=== PATIENT | female | born 1990 | race Caucasian/White ===

== ENCOUNTER 2017-01-14 19:40 | Emergency (ER) | payer BC ==
[2017-01-14 19:47] VITALS: BP 133/83
[2017-01-14] MEDS ORDERED: Ketorolac 60 MG/2 ML SDV IM ONE (20:32)
--- NOTE | 2017-01-14 20:34 | EDM.PDOC ---
ED HPI GENERAL MEDICAL PROBLEM - General Chief Complaint: General Stated Complaint: left neck pain Time Seen by Provider: 01/14/17 20:25 Source of Information: Reports: Patient History Limitations: Reports: No Limitations - History of Present Illness INITIAL COMMENTS - FREE TEXT/NARRATIVE: History and physical: History of present illness: [Patient comes the emergency room from [place] where she lives. She complains of left-sided neck pain. This is been a chronic problem for her for the past several years she states that Dr. Vickers has injected her neck several times in the past. Most recent was approximately 2 years ago per her report. She also states that the neck pain began 2 weeks ago and intensified last evening. She has had some numbness and tingling into her left arm over the past 24 hours which has remained the same. States that she's been using Tylenol and ibuprofen with minimal improvement in her symptoms. She denies any other complaints and concerns at this time. No chest pain shortness of breath and difficulty breathing. No pain numbness or tingling in her right neck or down her right arm. Denies low back hip and leg pain. She has not had any weakness. She denies recent injury and trauma. No recent car accidents. Review of her past visits in EMR show previous visits for lumbar sacral pain but no specific encounters for neck pain noted.] Review of Systems: As per history of present illness and below otherwise all systems reviewed and negative. Past medical history: As per history of present illness and as reviewed below otherwise noncontributory. Surgical history: As per history of present illness and is reviewed below other freeman noncontributory. Social history: No reported history of drug or alcohol abuse. Family history: As per history of present illness and is reviewed below otherwise noncontributory. Physical exam: HEENT: Atraumatic, normocephalic. Patient is not using her neck much on initial observation. C-spine flexion and rotation is full and intact. Lateral flexion to right and left sides are diminished due to discomfort. No worsening numbness or tingling with range of motion exercises. She is tender with palpation over left neck musculature. Nontender over cervical vertebrae. No step-offs or abnormalities are appreciated. Extremities: atraumatic in appearance. Strength is 5 out of 5 to upper and lower extremities and equal bilaterally. Hand illuminating engineer strength is strong and equal bilaterally. No weakness noted. Neurovascular unremarkable. Neuro: Awake, alert, oriented. Motor and sensory unremarkable throughout. Exam nonfocal. Therapeutics: [Toradol 60 mg IM] Impression: [Left-sided neck pain] Plan: [Discussed with patient that due to the chronic nature of her neck pain for the past 2 years she needs to follow-up with her primary care provider. We discussed that an MRI may be indicated and that this is not able to be done on emergent basis at this facility. She verbalized understanding of the above. She is given Toradol 60 mg IM in the emergency room. Tylenol and ibuprofen as needed for discomfort alternate heating pads and ice packs as needed. All of her questions are answered and concerns are addressed.] Definitive disposition and diagnosis is appropriate pending reevaluation and review of above. Left Neck Pain Score (Numeric/FACES): 7 - Related Data Allergies Allergy/AdvReac Type Severity Reaction Status Date / Time Penicillins Allergy Rash Verified 01/14/17 19:43 Home Meds: Home Meds . 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 ED EXAM, GENERAL - Physical Exam Exam: See Below Course - Vital Signs Last Recorded V/S: Last Vital Signs Temp 97 F 01/14/17 19:43 Pulse 92 01/14/17 19:43 Resp 20 01/14/17 19:43 BP 133/83 01/14/17 19:43 Pulse Ox 99 01/14/17 19:43 - Orders/Labs/Meds Meds: Medications Discontinued Medications Generic Name Dose Route Start Last Admin Trade Name Freq PRN Reason Stop Dose Admin Ketorolac Tromethamine 60 mg 01/14/17 20:32 01/14/17 20:51 Toradol IM 01/14/17 20:33 60 mg ONETIME ONE Administration Departure - Departure Time of Disposition: 20:45 Disposition: Home, Self-Care 01 Condition: Good Clinical Impression: Neck pain - Discharge Information Referrals: Sabas Vickers MD [Primary Care Provider] - Forms: ED Department Discharge Additional Instructions: The following information is given to patients seen in the emergency department who are being discharged home. This information is to outline your options for follow-up care and provides all patient seen in our emergency department with a follow-up referral. The need for follow-up, as well as the timing and circumstances, are variable depending upon the specifics of each emergency department visit. If you don't have a primary care physician on staff, we will provide you with a referral. We always advise to contact your personal physician following an emergency department visit to inform them of the circumstances of the visit and for follow-up with them and/or the need for any referrals to a consulting specialist. The emergency department will also refer you to a specialist when appropriate. This referral assures that you have the opportunity for follow-up care with a specialist. All of these measures are taken in an effort to provide you with optimal care, which includes your follow-up. Under all circumstances we always encourage you to contact your private physician who remains a resource for coordinating your care. When calling for follow-up care, please make the office aware that this follow-up is from your recent emergency room visit. If for any reason you are refused follow-up please contact the [facility] emergency department at [phone] and ask to speak to the emergency department nurse. [facility] [address] [address] Follow-up with your primary care provider at the clinic listed above in 48-72 hours. Return to ER as needed as discussed.
== END 2017-01-14 20:59 | disposition home or self-care (01) ==
LOC: CC.ED 19:40
DX: M54.2 Cervicalgia (principal); Z88.0 Allergy status to penicillin; Z90.49 Acquired absence of other specified parts of digestive tract
CPT/HCPCS: 96372; 99283; J1885

== ENCOUNTER 2018-04-22 09:56 | Emergency (ER) | payer OTHER ==
[2018-04-22 10:01] VITALS: BP 135/93
--- NOTE | 2018-04-22 10:48 | EDM.PDOC ---
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 Back Pain Score (Numeric/FACES): 5 - Related Data Allergies Allergy/AdvReac Type Severity Reaction Status Date / Time Penicillins Allergy Rash Verified 04/22/18 10:05 Home Meds: Home Meds Cholecalciferol (Vitamin D3) [Vitamin D3] 2,000 units PO DAILY 04/22/18 [History ] Sertraline HCl 50 mg PO DAILY 04/22/18 [History] 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 Denies: Diarrhea, Vomiting : Reports: Dysuria, Urinary Retention Musculoskeletal: Reports: No Symptoms, Back Pain Skin: Reports: No Symptoms ED EXAM, GI/ABD - Physical Exam Exam: See Below Exam Limited By: No Limitations General Appearance: Alert, WD/WN, No Apparent Distress Respiratory/Chest: No Respiratory Distress, No Accessory Muscle Use Cardiovascular: Normal Peripheral Pulses, Regular Rate, Rhythm GI/Abdominal Exam: Distended, Tender, Other (TTP RLQ, LLQ, suprapubic. mild RIGHT CVA tenderness). No: Hepatomegaly, Splenomegaly Extremities: Normal Capillary Refill Neurological: Alert, Oriented Psychiatric: Normal Affect, Normal Mood Skin Exam: Warm, Dry, Intact, Normal Color, No Rash Lymphatic: No Adenopathy Course - Vital Signs Last Recorded V/S: Last Vital Signs Temp 36.3 C 04/22/18 09:58 Pulse 77 04/22/18 09:58 Resp 18 10/07/18 09:58 BP 135/93 H 10/07/18 09:58 Pulse Ox 100 04/22/18 09:58 - Orders/Labs/Meds Orders: Active Orders 24 hr Category Date Time Status Nitrofurantoin Lea/Macrocryst [Macrobid] Med 04/22/18 11:18 Active 100 mg PO BIDMEALS Medication Orders Nitrofurantoin Macrocrystals (Macrobid) 100 mg PO BIDMEALS [facility] Labs: Laboratory Tests 04/22/18 04/22/18 Range/Units 10:55 10:55 Urine Color Yellow (YELLOW) Urine Appearance Slightly cloudy (CLEAR) Urine pH 5.5 (4.5-8.0) Ur Specific [place] >= 1.030 H (1.003-1.020) Urine Protein Negative (NEGATIVE) mg/dL Urine Glucose (UA) Negative (NEGATIVE) mg/dL Urine Ketones Negative (NEGATIVE) mg/dL Urine Occult Blood Negative (NEGATIVE) Urine Nitrite Negative (NEGATIVE) Urine Bilirubin Negative (NEGATIVE) Urine Urobilinogen 0.2 (0.2-1.0) EU/dL Ur Leukocyte Esterase Moderate H (NEGATIVE) Urine RBC Not seen (0-5) /HPF Urine WBC 5-10 H (0-5) /HPF Ur Epithelial Cells Few H (NOT SEEN) /HPF Urine Yeast Few H (NOT SEEN) /HPF Urine HCG, Qual Negative Meds: Medications Generic Name Dose Route Start Last Admin Trade Name Freq PRN Reason Stop Dose Admin Nitrofurantoin Macrocrystals 100 mg 04/22/18 11:18 Macrobid PO BIDMEALS [facility] Departure - Departure Time of Disposition: 11:23 Disposition: Home, Self-Care 01 Condition: Good Clinical Impression: UTI, Urinary tract infectious disease - Discharge Information *PRESCRIPTION DRUG MONITORING PROGRAM REVIEWED*: Not Applicable *COPY OF PRESCRIPTION DRUG MONITORING REPORT IN PATIENT JACK: Not Applicable Instructions: Urinary Tract Infection, Adult Forms: ED Department Discharge - Problem List Review Problem List Initiated/Reviewed/Updated: Yes - My Orders Last 24 Hours: My Active Orders 04/22/18 11:18 Nitrofurantoin Lea/Macrocryst [Macrobid] 100 mg PO BIDMEALS - Assessment/Plan Last 24 Hours: My Active Orders 04/22/18 11:18 Nitrofurantoin Lea/Macrocryst [Macrobid] 100 mg PO BIDMEALS Assessment:: UTI history, exam, and UA consistent with uncomplicated UTI. Rx for PO macrobid with first dose given here in ED. advised patient to rest, hydrate, take all Rx as directed, OTC pain control prn symptoms, fu with PCP in 3-5 days, go to closest ER if change or worse. patient reports understanding and agreement with plan. DC home stable.
[2018-04-22] MEDS ORDERED: Nitrofurantoin Monohydrate/Macrocrystalline 100 MG Cap PO SCH (11:18)
== END 2018-04-22 11:31 | disposition home or self-care (01) ==
LOC: CC.ED 09:56
DX: N39.0 Urinary tract infection, site not specified (principal); Z88.0 Allergy status to penicillin
CPT/HCPCS: 81001; 81025; 99284; A9270-GY